=== PATIENT | female | born 2000 | race Caucasian/White ===

== ENCOUNTER 2018-06-26 17:53 | Emergency (ER) | payer OTHER ==
--- OUTSIDE RECORDS SUMMARY | 2018-06-26 17:57 | XMS REPORT ---
:2000 Author Organization [facility] Address [address] [place] [address] [address] [place] [address] Care Team Providers Name Role Phone DARRYL CRAVEN Primary Care Provider Unavailable Problems This patient has no known problems. Allergies, Adverse Reactions, Alerts This patient has no known allergies or adverse reactions. Medications This patient has no known medications. Encounters Start End Encounter Admission Attending Care Care Encounter Date/Time Date/Time Type Type Clinicians Facility Department ID 2017-05-27 2017-05-27 Emergency E [facility] [id number] 18:45:00 18:45:00 Results Test Description Test Time Test Comments Text Results Atomic Results Result Comments US OB <14 WEEKS 2018-05-16 15:58:[address] [id number] IMAGING REPORTPatient Name: LASHON GALLEGOS LDate of Service: [id number]: 19 Sex: F Order #: [id number] Room: OPODOB: 2000 X-Ray Number: [id number] Record Number: [id number] Hospital Number: [id number] Physician: Batsheva BENITO Physician: MARY BETH BENITO OBSTETRICAL FIRST TRIMESTER 3:00 PMHistory: Assess size and dates.Findings:The uterus is visualized and measures 9.9 cm longitudinally.There is a single living intrauterine at approximately 10 weeks4 daysFetal heart rate is 169 bpm.There is no subchorionic hemorrhage.The placenta is suboptimally assessed due to early gestational age.The amniotic fluid volume appears adequate.There is no significant abnormality of the visualized ovaries. There is a2.2 cm follicle RIGHT ovary.IMPRESSION:Single living intrauterine at approximately 10 weeks 4 days bycurrent sonographic measurements.Electronically Signed By: Luis Miguel Costello M.D., 05/16/2018 3:55 PMLegally authenticated by FIONA KHALIL 2018-05-16 15:55:41 CULTURE, URINE 2018-05-04 10:42:00 Test Item Value Reference Range Comments Report Text (test code=Report Text) [facility] 2018-05-03 1039 Report Text7 (test code=Report Text7) INSUFFICIENT GROWTH OF ORGANISM TO PROCESS FOR Report Text8 (test code=Report Text8) IDENTIFICATION AND SUSCEPTIBILITY STUDIES; Report Text9 (test code=Report Text9) HOLDING FOR BETTER GROWTH; Report Text10 (test code=Report PRELIMINARY REPORT Text10) Report Text11 (test code=Report Text11) Report Text12 (test code=Report DMB 2018-05-04 1041 Text12) Report Text13 (test code=Report B 2018-05-04 1042 Text13) Report Text14 (test code=Report GROUP B STREPTOCOCCUS AGALACTIAE ISOLATED; Text14) Report Text15 (test code=Report SUSCEPTIBILITIES NOT ROUTINELY PERFORMED; Text15) Report Text16 (test code=Report CLSI: RESISTANT STRAINS HAVE NOT BEEN Text16) RECOGNIZED. Report Text17 (test code=Report CONTACT LAB IF PATIENT IS Text17) PENICILLIN-ALLERGIC Report Text18 (test code=Report AND SUSCEPTIBILITY TESTING IS NEEDED. Text18) B-HCG, [id number] 12:50:00 Test Item Value Reference Range Comments HCG (test code=HCG) 799846 MIU/ML A value of less than or equal to </=4.83 mIU/ml is considered NEGATIVE. A value between 4.84 mIU/ml and 24.99 mIU/ml is considered INDETERMINATE and should be repeated in 48 hours if necessary. A value of 25.0 mIU/ml or greater is considered POSITIVE. Updated: 08/02/2009 [id number] 12:32:00 Test Item Value Reference Range Comments GLUCOSE (test code=URGLU) NEGATIVE MG/DL NEG-100 BILIRUBN (test code=URBILI) SMALL NEGATIVE KETONE (test code=URKET) NEGATIVE MG/DL NEGATIVE BLOOD (test code=URBLD) LARGE UR PH (test code=URPH) 5.0 5.0-7.5 PROTEIN (test code=URPRO) 100 MG/DL NEGATIVE NITRITES (test code=URNIT) NEGATIVE NEGATIVE UROBILINGEN (test code=URURO) 0.2 EU/DL 0.2-1.0 LEUKOCYT (test code=URLEU) MODERATE NEGATIVE UA COLOR (test code=UA COLOR) RED YELLOW CLARITY (test code=CLARITY) TURBID CLEAR SP GRAV (test code=URSPGRAV) 1.035 1.000-1.025 UAMICRO (test code=UAMICRO) YES WBC (test code=URWBC) >900 /HPF 0-5 RBC (test code=URRBC) >900 /HPF 0-2 UR EPI (test code=EPI) 93 /LPF BACTERIA (test code=BACTERIA) NEGATIVE NONE MUCOUS (test code=URMUCOUS) MODERATE /LPF NONE [id number] 12:23:00 Test Item Value Reference Range Comments WBC (test code=WBC) 14.5 K/UL 3.5-10.9 RBC (test code=RBC) 4.51 M/UL 4.0-5.0 HGB (test code=HGB) 13.3 G/DL 11.5-15.5 HCT (test code=HCT) 39.5 % 34-46 MCV (test code=MCV) 87.6 FL 80-98 MCH (test code=MCH) 29.5 PG 28-32 MCHC (test code=MCHC) 33.7 G/DL 32.5-36.5 RDW (test code=RDW) 12.3 % 11.5-14.5 PLT (test code=PLT) 207 K/UL 150-450 MPV (test code=MPV) 11.0 FL 7.4-10.4 MANDIFF (test code=MANDIFF) NO SCAN (test code=SCAN) NO NEUT% (test code=NEUT%) 86.3 % 40-75 LYMPH% (test code=LYMPH%) 9.8 % 24-44 MONO% (test code=MONO%) 3.3 % 0-13 EOS% (test code=EOS%) 0.1 % 0-4 BASO % (test code=BASO%) 0.2 % 0-2 IG (test code=IG) 0 % 0-1 IG% (test code=IG%) 0.3 % 0-1 IG%=Metamyelocytes, Myelocytes, and Promyelocytes. (Immature neutrophils not including "bands".) > 3% IG indicates risk of sepsis NRBC% (test code=NRBC%) 0 /100 WBC ABS NEUT (test code=NEUT) 12.5 K/UL 1.2-7.2 [id number] 12:20:00 Test Item Value Reference Range Comments BLOOD TYPE (test code=TYPE) O Rh Positive BMP, BASIC METABOLIC [id number] 12:08:00 Test Item Value Reference Range Comments SODIUM (test code=NA) 138 MMOL/L 137-145 K+ (test code=KSERUM) 4.6 MMOL/L 3.5-5.1 PLEASE NOTE NEW REFERENCE RANGE(S) IN EFFECT EFFECTIVE 10/30/2009 - NEW ANALYZER (Cubicl 5600) CHLORIDE (test code=CL) 104 MMOL/L 98-107 CO2 (test code=CO2) 26 MMOL/L 22-30 BUN (test code=BUN) 8 MG/DL 7-17 CREA (test code=CREA) 0.4 MG/DL 0.7-1.2 GLUCOSE (test 119 MG/DL 70-99 Fasting glucose normal code=GLUCOSE) <100 MG/DL- [employer] recommendation CALCIUM (test 10.0 MG/DL 8.4-10.2 code=CABLOOD) GFR (test code=GFR) 219 mL/min/1.73m2 A GFR of >90 mL/min/1.73m2 is considered normal. B-HCG QUAL (KIT)2018-05-02 10:08:00 Test Item Value Reference Range Comments HCGQUAL (test code=HCGQUAL) POSITIVE NEGATIVE URINE: NEGATIVE=< 20 mIU/ML; POSITIVE=>/=20 mIU/ML SERUM: NEGATIVE=< 10 mIU/ML; POSITIVE=>/=10 mIU/ML SOURCE (test code=SOURCE) URINE HCG INTERNAL POSITIVE CNTRL PASS PASS (test code=HCGIPC) HCG LOT # (test code=UHCGLOT) [id number] HCG EXPIRATION DATE (test code=UHCGEXP)
[2018-06-26 21:01] LABS: Urine Blood NEGATIVE (NEG); Urine Glucose NEGATIVE (NEG); Urine Protein NEGATIVE (NEG)
--- NOTE | 2018-06-26 21:03 | EDPHYS ---
Physician Documentation [facility] Name: Luiz Drummond Age: 18 yrs Sex: Female : 2000 Arrival Date: 06/26/2018 Time: 17:57 Bed Treatment Private MD: None, None ED Physician Luis Miguel Vasquez HPI: 06/26 19:09 This 18 yrs old Female presents to ER via Ambulatory with complaints of 16 jmm wks , Vomiting/Diarrhea, Headache. 19:09 Onset: The symptoms/episode began/occurred gradually, 3 day(s) ago. Modifying factors: jmm The symptoms are alleviated by nothing. the symptoms are aggravated by nothing. Associated signs and symptoms: Pertinent positives: sore throat, Pertinent negatives: fever. This is a 18 year old female with no chronic medical conditions that presents to the ED with complaints of congestion, sore throat beginning 3 days ago. Denies abdominal pain, denies vaginal bleeding, denies pelvic pain, denies vomiting, states having multiple episodes of diarrhea. Patient is 16 weeks with US confirmed IUP. . Historical: - Allergies: 18:07 No Known Allergies; sv - PMHx: 18:07 None; sv - PSHx: 18:07 None; sv - Immunization history:: Flu vaccine is not up to date. - Social history:: Smoking status: Patient/guardian denies using tobacco. - Ebola Screening: : Patient denies travel to an Ebola-affected area in the 21 days before illness onset. ROS: 19:09 Constitutional: Negative for fever, chills, and weight loss, Eyes: Negative for injury, jmm pain, redness, and discharge. 19:09 ENT: Positive for sinus congestion, sore throat. 19:09 Respiratory: Negative for cough. 19:09 Abdomen/GI: Positive for diarrhea, Negative for abdominal pain. 19:09 All other systems are negative. Exam: 19:09 Constitutional: This is a well developed, well nourished patient who is awake, alert, jmm and in no acute distress. Head/Face: atraumatic. Eyes: EOMI, no conjunctival erythema appreciated ENT: Moist Mucus Membranes Neck: Trachea midline, Supple Chest/axilla: Normal chest wall appearance and motion. Cardiovascular: Regular rate and rhythm. No edema appreciated Respiratory: Normal respirations, no respiratory distress appreciated Abdomen/GI: Non distended, soft Back: Normal ROM Skin: General appearance color normal MS/ Extremity: Moves all extremities, no obvious deformities appreciated, no edema noted to the lower extremities Neuro: Awake and alert, normal gait Psych: Behavior is normal, Mood is normal, Patient is cooperative and pleasant Vital Signs: 18:07 BP 110 / 69; Pulse 85; Resp 16; Temp 98.7; Pulse Ox 100% ; Weight 47.63 kg; Height 5 sv ft. 2 in. (157.48 cm); Pain 0/10; 18:07 Body Mass Index 19.21 (47.63 kg, 157.48 cm) sv MDM: 19:09 Patient medically screened. [facility] 21:01 Data reviewed: vital signs, nurses notes. Counseling: I had a detailed discussion with [facility] the patient and/or guardian regarding: the historical points, exam findings, and any diagnostic results supporting the discharge/admit diagnosis, lab results, the need for outpatient follow up, to return to the emergency department if symptoms worsen or persist or if there are any questions or concerns that arise at home. 21:05 ED course: patient is alert and non toxic in appearance in the ED. I discussed with the [facility] patient the need for reevaluation by OB in 1 to 2 days with strict return precautions. patient understood and agrees with the plan of care. . 06/26 19:08 Order name: Flu; Complete Time: 20:43 [facility] 06/26 19:08 Order name: Strep; Complete Time: 20:43 [facility] 06/26 19:14 Order name: Urine Dipstick-Ancillary (obtain specimen); Complete Time: 20:11 [facility] 06/26 19:14 Order name: Heart Tones; Complete Time: 20:11 [facility] 06/26 20:10 Order name: Fingerstick Glucose; Complete Time: 20:21 [facility] 06/26 20:33 Order name: Urine Dipstick--Ancillary (enter results); Complete Time: 21:05 ms 06/26 20:33 Order name: Urine --Ancillary (enter results); Complete Time: 21:05 ms Administered Medications: No medications were administered Point of Care Testing: Blood Glucose: 20:21 Blood Glucose: 88 mg/dL; aj1 Ranges: Critical Glucose Levels:Adult <50 mg/dl or >400 mg/dl <40 mg/dl or >180 mg/dl Disposition: 06/26/18 21:02 Discharged to Home. Impression: Streptococcal pharyngitis, Urinary tract infection, site not specified. - Condition is Stable. - Discharge Instructions: Strep Throat, Urinary Tract Infection, Adult. - Prescriptions for Cephalexin 500 mg Oral Capsule - take 1 capsule by ORAL route every 12 hours for 10 days; 20 capsule. - Medication Reconciliation Form, Thank You Letter, Antibiotic Education, Prescription Opioid Use form. - Follow up: Private Physician; When: 1 - 2 days; Reason: Recheck today's complaints, Continuance of care, Re-evaluation by your physician. Signatures: [facility] Mae Andino RN RN aj1 Eleni Brandt RN RN sv Angelo Castelan PA PA melquiades Corrections: (The following items were deleted from the chart) 20:03 19:42 Urine Dipstick-Ancillary ordered. [facility] 20:03 19:42 Urine --Ancillary ordered. [facility] 20:34 20:33 URINE DIPSTICK--ANCILLARY+U.LAB.BRZ ordered. [facility] 21:07 21:02 06/26/2018 21:02 Discharged to Home. Impression: Streptococcal pharyngitis. [facility] Condition is Stable. Forms are Medication Reconciliation Form, Thank You Letter, Antibiotic Education, Prescription Opioid Use. Follow up: Private Physician; When: 1 - 2 days; Reason: Recheck today's complaints, Continuance of care, Re-evaluation by your physician. [facility] 21:22 21:07 06/26/2018 21:02 Discharged to Home. Impression: Streptococcal pharyngitis; aj1 Urinary tract infection, site not specified. Condition is Stable. Discharge Instructions: Strep Throat. Prescriptions for Amoxicillin 875 mg Oral Tablet - take 1 tablet by ORAL route every 12 hours for 10 days; 20 tablet. and Forms are Medication Reconciliation Form, Thank You Letter, Antibiotic Education, Prescription Opioid Use. Follow up: Private Physician; When: 1 - 2 days; Reason: Recheck today's complaints, Continuance of care, Re-evaluation by your physician. [facility]
--- NOTE | 2018-06-26 21:03 | ER ---
Nurse's Notes [facility] Name: Luiz Drummond Age: 18 yrs Sex: Female : 2000 Arrival Date: 06/26/2018 Time: 17:57 Bed Treatment Private MD: None, None Diagnosis: Streptococcal pharyngitis;Urinary tract infection, site not specified Presentation: 06/26 18:06 Presenting complaint: Patient states: congestion, nausea, diarrhea, bodyaches, headache sv x 3 days ago. Pt is 16 wks . Transition of care: patient was not received from another setting of care. Onset of symptoms was June 23, 2018. Care prior to arrival: None. 18:06 Method Of Arrival: Ambulatory sv 18:06 Acuity: TATIANNA 3 sv 21:22 Risk Assessment: Do you want to hurt yourself or someone else? Patient reports no aj1 desire to harm self or others. Initial Sepsis Screen: Does the patient meet any 2 criteria? No. Patient's initial sepsis screen is negative. Does the patient have a suspected source of infection? No. Patient's initial sepsis screen is negative. Triage Assessment: 18:09 General: Appears in no apparent distress. uncomfortable, slender, Behavior is calm, sv cooperative, appropriate for age. Pain: Denies pain. Neuro: Level of Consciousness is awake, alert, obeys commands, Oriented to person, place, time, situation, Gait is steady. Respiratory: Respiratory effort is even, unlabored, Respiratory pattern is regular, symmetrical. Historical: - Allergies: 18:07 No Known Allergies; sv - PMHx: 18:07 None; sv - PSHx: 18:07 None; sv - Immunization history:: Flu vaccine is not up to date. - Social history:: Smoking status: Patient/guardian denies using tobacco. - Ebola Screening: : Patient denies travel to an Ebola-affected area in the 21 days before illness onset. Screenin:35 Abuse screen: Denies threats or abuse. Denies injuries from another. Nutritional aj1 screening: No deficits noted. Tuberculosis screening: No symptoms or risk factors identified. 21:22 Fall Risk None identified. aj1 Assessment: 18:35 General: Appears in no apparent distress. uncomfortable, ill, Behavior is calm, aj1 cooperative, appropriate for age. Pain: Denies pain. Neuro: Level of Consciousness is awake, alert, obeys commands, Oriented to person, place, time, situation. Cardiovascular: Patient's skin is warm and dry. Respiratory: Reports cough that is persistent Airway is patent Respiratory effort is even, unlabored, Respiratory pattern is regular, symmetrical. GI: Reports nausea, Patient currently denies vomiting. GI: Abdomen is non-distended. : No signs and/or symptoms were reported regarding the genitourinary system. : Reports that she is currently 16 weeks . EENT: Reports sore throat. Derm: No signs and/or symptoms reported regarding the dermatologic system. Skin is pink, warm \T\ dry. normal. Musculoskeletal: No signs and/or symptoms reported regarding the musculoskeletal system. Circulation, motion, and sensation intact. 19:30 Reassessment: Patient appears in no apparent distress at this time. No changes from [facility] previously documented assessment. Patient and/or family updated on plan of care and expected duration. Pain level reassessed. Patient is alert, oriented x 3, equal unlabored respirations, skin warm/dry/pink. 20:22 Reassessment: Patient appears in no apparent distress at this time. No changes from aj1 previously documented assessment. Patient and/or family updated on plan of care and expected duration. Pain level reassessed. Patient is alert, oriented x 3, equal unlabored respirations, skin warm/dry/pink. 21:21 Reassessment: Patient appears in no apparent distress at this time. No changes from 1 previously documented assessment. Patient and/or family updated on plan of care and expected duration. Pain level reassessed. Patient is alert, oriented x 3, equal unlabored respirations, skin warm/dry/pink. Vital Signs: 18:07 BP 110 / 69; Pulse 85; Resp 16; Temp 98.7; Pulse Ox 100% ; Weight 47.63 kg; Height 5 sv ft. 2 in. (157.48 cm); Pain 0/10; 18:07 Body Mass Index 19.21 (47.63 kg, 157.48 cm) sv Vitals: 20:21 Heart Tones 164. aj1 ED Course: 17:57 Patient arrived in ED. mr 17:58 None, None is Private Physician. mr 18:07 Triage completed. sv 18:08 Arm band placed on. sv 18:35 Mae Andino, RN is Primary Nurse. aj 18:35 Patient has correct armband on for positive identification. Bed in low position. Call aj1 light in reach. Side rails up X 1. 18:35 No provider procedures requiring assistance completed. [facility] 19:08 Angelo Castelan PA is PHCP. [facility] 19:08 Luis Miguel Vasquez MD is Attending Physician. [facility] 21:21 Patient did not have IV access during this emergency room visit. aj Administered Medications: No medications were administered Point of Care Testing: Blood Glucose: 20:21 Blood Glucose: 88 mg/dL; aj Ranges: Outcome: 21:02 Discharge ordered by . [facility] 21:22 Discharged to home ambulatory. [facility] 21:22 Condition: good 21:22 Discharge instructions given to patient, Instructed on discharge instructions, follow up and referral plans. medication usage, Demonstrated understanding of instructions, follow-up care, medications, Prescriptions given X 1. 21:22 Patient left the ED. [facility] Signatures: Mae Andino RN RN [facility] Eleni Brandt RN RN Angelo Castelan PA PA [facility] Suni Greene mr Corrections: (The following items were deleted from the chart) 18:09 18:06 Acuity: TATIANNA 4 sv sv 18:09 18:07 Pulse 85bpm; Resp 16bpm; Pulse Ox 100%; Temp 98.7F; 47.63 kg; Height 5 ft. 2 in.; sv BMI: 19.2; Pain 0/10; sv
== END 2018-06-26 21:22 | disposition home or self-care (01) ==
LOC: ER 17:53
DX: O26.892 Other specified pregnancy related conditions, second trimester (principal); J02.0 Streptococcal pharyngitis; O23.42 Unspecified infection of urinary tract in pregnancy, second trimester; Z3A.16 16 weeks gestation of pregnancy
CPT/HCPCS: 81003; 81025; 82962; 87081; 87804; 99283